=== PATIENT | female | born 1925 | race Caucasian/White ===

== ENCOUNTER 2016-05-01 22:18 | Emergency (ER) | payer OTHER, BC ==
[~2016-05-01] VITALS: Ht 157.5 cm; Wt 44.8 kg
[~2016-05-01 22:18] MED LIST: ACETAMINOPHEN325 M1 PO; ACETAMINOPHEN500 MG PO; ASPIR-LOW81 MG PO; BUSPAR10 MG PO; CEPACOL SORE T1 EAC9 MM; CRANBERRY TABL1 EACH PO; DULCOLAX10 MG PR; EVISTA60 MG PO; FUROSEMIDE20 MG PO; LO-DOSE ASPIRIN81 M1 PO; MOBIC15 MG PO; ONDANSETRON ODT4 MG PO; OXYCODONE HCL5 MG PO; OYST-CAL-500500 MG PO; OYSTER SHELL 51 EACH PO; PREDNISONE10 MG PO; PREDNISONE5 MG PO; PROTONIX40 MG PO; SENEXON-S TABL1 EACH PO; SENNA S TABLET1 EACH PO; TRAMADOL HCL50 MG PO; TYLENOL REGULA325 MG PO; VITAMIN D-3 401 EACH PO; VITAMIN D400 UNI1 PO; ZOLOFT50 MG PO
[2016-05-01 23:49] LABS: EOSINOPHIL (%) 1.1 % (0-5); EOSINOPHIL COUNT 0.1 K/uL (0-0.3); HEMATOCRIT 33.8 % (36.0-46.0); IMMATURE GRANULOCYTE (%) 0.2 % (0.0-0.7); IMMATURE GRANULOCYTE COUNT 0.2 K/uL; LYMPHOCYTE COUNT 1.5 K/uL (1.0-2.8); MCH 30.3 PG (29.0-34.0); MCHC 32.2 G/DL (30.0-36.0); MCV 93.9 FL (83-99); MEAN PLAT.VOLUME 8.9 uM^3 (9.5-12.4); MONOCYTE (%) 8.4 % (3-12); MONOCYTE COUNT 0.8 K/uL (0-0.8); PLATELET COUNT 218 K/uL (156-360); RBC DIS.WIDTH-CV 14.2 % (11.8-14.6); RBC DIS.WIDTH-SD 45.9 % (39-53); WHITE BLOOD COUNT 9.4 K/uL (4.1-10.2)
[2016-05-02] LABS: CHLORIDE 105 mEq/L (99-109); POTASSIUM 3.9 mEq/L (3.7-5.4); SODIUM 139 mEq/L (136-147)
[2016-05-02 00:01] LABS: INTER. NORMALIZED RATIO 1.1; PROTHROMBIN TIME 11.4 (9.2-11.2); PTT 23.6 (25-32)
[2016-05-02 00:02] LABS: GLUCOSE 91 mg/dL (70-99)
[2016-05-02 00:03] LABS: ANION GAP 9 MEQ/L (2-14)
[2016-05-02 00:05] LABS: GFR ESTIMATE (CALCULATED) > 59 mL/min/
[2016-05-02 00:07] LABS: UREA NITROGEN (BUN) 25 mg/dL (9-23)
[2016-05-02] MEDS ORDERED: PANTOPRAZOLE SO40 MG PO (00:25)
[2016-05-02] MEDS ORDERED: FUROSEMIDE20 MG PO (00:25)
[2016-05-02] MEDS ORDERED: PREDNISONE10 MG PO (00:26)
[2016-05-02] MEDS ORDERED: EVISTA60 MG PO (00:27)
[2016-05-02] MEDS ORDERED: VITAMIN D-3 401 EACH PO (00:27)
[2016-05-02] MEDS ORDERED: LO-DOSE ASPIRIN81 M2 PO (00:28)
[2016-05-02] MEDS ORDERED: SERTRALINE HCL50 MG PO (00:29)
[2016-05-02] MEDS ORDERED: OYSTER SHELL 51 EACH PO (00:29)
[2016-05-02] MEDS ORDERED: CRANBERRY250 MG PO (00:30)
[2016-05-02] MEDS ORDERED: SENEXON-S TABL1 EACH PO (00:30)
[2016-05-02] MEDS ORDERED: MELOXICAM15 MG PO (00:31)
[2016-05-02] MEDS ORDERED: BUSPIRONE HCL10 MG PO (00:31)
[2016-05-02] MEDS ORDERED: PERCOCET 5/31 TABLET PO ×2 (00:32→00:33)
[2016-05-02] MEDS ORDERED: DULCOLAX10 MG PR (00:32)
[2016-05-02] MEDS ORDERED: TRAMADOL HCL50 MG PO (00:33)
[2016-05-02] MEDS ORDERED: ACETAMINOPHEN325 M1 PO (00:34)
[2016-05-02] MEDS ORDERED: ACETAMINOPHEN500 MG PO (00:35)
[2016-05-02] MEDS ORDERED: ONDANSETRON ODT4 MG PO (00:37)
[2016-05-02 04:40] VITALS: BP 127/78
== END 2016-05-02 04:40 | disposition home or self-care (01) ==
LOC: EME 22:18
PROVIDERS: Emergency Medicine
PROC: 2W3DX1Z Immobilization of Left Lower Arm using Splint (ICD-10-PCS; principal; 2016-05-02)
DX: S00.83XA Contusion of other part of head, initial encounter (principal); S61.512A Laceration without foreign body of left wrist, initial encounter; S60.212A Contusion of left wrist, initial encounter; S70.02XA Contusion of left hip, initial encounter; W19.XXXA Unspecified fall, initial encounter; Y92.199 Unspecified place in other specified residential institution as the place of occurrence of the external cause; Z23 Encounter for immunization; Z28.21 Immunization not carried out because of patient refusal; G89.29 Other chronic pain; Z79.891 Long term (current) use of opiate analgesic; Z79.82 Long term (current) use of aspirin; Z79.52 Long term (current) use of systemic steroids
CPT/HCPCS: 70450; 70486; 72125; 73110; 73130; 73502; 80048; 85025; 85610; 85730; 93005; 99281; 99284